=== PATIENT | female | born 1990 | race Hispanic/Latino ===

== ENCOUNTER 2019-06-12 16:56 | Emergency (ER) | payer SELFPAY ==
--- NOTE | 2019-06-12 17:35 | Emergency Department Report ---
Blank Doc - Documentation Documentation: 28-year-old female that presents with pelvic pain. Denies any vomiting or [place]. This initial assessment/diagnostic orders/clinical plan/treatment(s) is/are subject to change based on patient's health status, clinical progression and re- assessment by fellow clinical providers in the ED. Further treatment and workup at subsequent clinical providers discretion. Patient/guardians urged not to elope from the ED as their condition may be serious if not clinically assessed and managed. Initial orders include: 1- Patient sent to [facility] for further evaluation and treatment 2- UA
[2019-06-12 18:42] LABS: HCG Qualitative,Urine Negative (Negative)
[2019-06-12 18:43] LABS: Bilirubin,Urine NEG (Negative); Blood,Urine NEG (Negative); Color,Urine Yellow (Yellow); Mucus,Urine FEW /HPF; Protein,Urine <15 mg/dL mg/dL (Negative); Urobilinogen,Urine < 2.0 mg/dL (<2.0)
[2019-06-12 19:56] VITALS: BP 114/65
--- NOTE | 2019-06-12 20:03 | Emergency Department Report ---
ED ENT HPI - General Chief complaint: Abdominal Pain Stated complaint: SNEEZING/STOMACH/BODY PAIN Time Seen by Provider: 06/12/19 17:33 Source: patient Mode of arrival: Ambulatory Limitations: No Limitations - Related Data Previous Rx's Medication Instructions Recorded Last Taken Type Amoxicillin/K Clav Tab [Augmentin 1 tab PO Q12HR #20 tab 06/12/19 Unknown Rx 875 mg] Brompheniram/Phenylephrine/Dm 5 ml PO TID #240 solution 06/12/19 Unknown Rx [Children's Cold-Cough Elixir] predniSONE [Deltasone] 20 mg PO BID #10 tab 06/12/19 Unknown Rx ED Dental HPI - General Chief complaint: Abdominal Pain Stated complaint: SNEEZING/STOMACH/BODY PAIN Time Seen by Provider: 06/12/19 17:33 Source: patient Mode of arrival: Ambulatory Limitations: No Limitations - Related Data Previous Rx's Medication Instructions Recorded Last Taken Type Amoxicillin/K Clav Tab [Augmentin 1 tab PO Q12HR #20 tab 06/12/19 Unknown Rx 875 mg] Brompheniram/Phenylephrine/Dm 5 ml PO TID #240 solution 06/12/19 Unknown Rx [Children's Cold-Cough Elixir] predniSONE [Deltasone] 20 mg PO BID #10 tab 06/12/19 Unknown Rx ED Review of Systems ROS: Stated complaint: SNEEZING/STOMACH/BODY PAIN Other details as noted in HPI ED Past Medical Hx - Past Medical History Hx Asthma: Yes - Surgical History Past Surgical History?: No - Social History Smoking Status: Never Smoker Substance Use Type: None - Medications Home Medications: Home Medications Medication Instructions Recorded Confirmed Last Taken Type Amoxicillin/K Clav Tab [Augmentin 1 tab PO Q12HR #20 tab 06/12/19 Unknown Rx 875 mg] Brompheniram/Phenylephrine/Dm 5 ml PO TID #240 solution 06/12/19 Unknown Rx [Children's Cold-Cough Elixir] predniSONE [Deltasone] 20 mg PO BID #10 tab 06/12/19 Unknown Rx ED Physical Exam - General Limitations: No Limitations ED Course Vital Signs 06/12/19 06/12/19 17:05 19:40 Temperature 98.3 F 97.6 F Pulse Rate 81 78 Respiratory 18 18 Rate Blood Pressure 112/55 Blood Pressure 114/65 [Left] O2 Sat by Pulse 99 100 Oximetry Critical care attestation.: If time is entered above; I have spent that time in minutes in the direct care of this critically ill patient, excluding procedure time. ED Disposition Disposition: [id number] TO HOME OR SELFCARE Condition: Stable Instructions: Abdominal Pain (ED), Sinusitis (ED), Acute Bacterial Rhinosinusitis (ED) Prescriptions: Amoxicillin/K Clav Tab [Augmentin 875 mg] 1 tab PO Q12HR #20 tab Brompheniram/Phenylephrine/Dm [Children's Cold-Cough Elixir] 5 ml PO TID #240 solution predniSONE [Deltasone] 20 mg PO BID #10 tab Referrals: PRIMARY CARE, [Primary Care Provider] - 3-5 Days [facility] [Provider Group] - 3-5 Days
[2019-06-12] MEDS ORDERED: HYDROcodone/ACETAMINOPHEN 5-325 MG TAB PO ONE (20:28)
[2019-06-12] MEDS ORDERED: HYDROcodone/ACETAMINOPHEN 5-325 MG TAB ONE (20:30)
== END 2019-06-12 20:40 | disposition home or self-care (01) ==
LOC: ED 16:56
DX: J02.9 Acute pharyngitis, unspecified (principal); R10.9 Unspecified abdominal pain; R06.7 Sneezing; H92.01 Otalgia, right ear
CPT/HCPCS: 81001; 81025